=== PATIENT | male | born 1985 | race Caucasian/White ===

== ENCOUNTER 2020-06-22 14:25 | Emergency (ER) | payer BC ==
[2020-06-22] MEDS ORDERED: Ketorolac 15 MG/ML SDV IVPUSH ONE (15:04)
[2020-06-22] MEDS ORDERED: Sodium Chloride 0.9% 1,000 ML IV SCH (15:15)
--- NOTE | 2020-06-22 15:25 | EDM.PDOC ---
ED HPI GENERAL MEDICAL PROBLEM - General Chief Complaint: Cardiovascular Problem Time Seen by Provider: 06/22/20 14:30 Source of Information: Reports: Patient History Limitations: Reports: No Limitations - History of Present Illness INITIAL COMMENTS - FREE TEXT/NARRATIVE: Pt. presents to ER with complaints of substernal chest discomfort, shortness of breath, and pain with deep breathing. He states that he was working on his computer at onset of symptoms. He states that he has not been diaphoretic. No nausea, vomiting, or diarrhea. He states that he feels a bit more congested, in the sinuses more than the chest. He states that he does not have a productive cough. Pt. states that he has never had any problem like this in the past. He has no history of hypertension. According to his [place] chart, he has a history of low HDL. Remainder of lipid panel were normal. Pt. is a non-smoker. He exercises daily. He states that he does feel somewhat anxious, but he states that this is improving since getting to the hospital. Onset: Today Onset Date: 06/22/20 - Related Data Allergies Allergy/AdvReac Type Severity Reaction Status Date / Time Penicillins Allergy Cannot Verified 06/22/20 14:52 Remember Home Meds: Home Meds . [No Known Home Meds] 06/22/20 [History] Past Medical History Psychiatric History: Reports: Anxiety Social & Family History - Tobacco Use Tobacco Use Status *Q: Never Tobacco User - Recreational Drug Use Recreational Drug Use: No ED ROS GENERAL - Review of Systems Review Of Systems: See Below Constitutional: Reports: No Symptoms HEENT: Reports: No Symptoms Respiratory: Reports: Shortness of Breath, Pleuritic Chest Pain Cardiovascular: Reports: Chest Pain Endocrine: Reports: No Symptoms GI/Abdominal: Reports: No Symptoms : Reports: No Symptoms Musculoskeletal: Reports: No Symptoms Skin: Reports: No Symptoms Neurological: Reports: No Symptoms Psychiatric: Reports: No Symptoms Hematologic/Lymphatic: Reports: No Symptoms Immunologic: Reports: No Symptoms ED EXAM, GENERAL - Physical Exam Exam: See Below Exam Limited By: No Limitations General Appearance: Alert, WD/WN, No Apparent Distress Head: Atraumatic, Normocephalic Neck: Normal Inspection, Supple, Non-Tender, Full Range of Motion Respiratory/Chest: No Respiratory Distress, Lungs Clear, No Accessory Muscle Use, Chest Non-Tender, Pleural Rub Cardiovascular: Normal Peripheral Pulses, Regular Rate, Rhythm, No Edema, No JVD, No Murmur Peripheral Pulses: 4+: Radial (L) GI/Abdominal: Normal Bowel Sounds, Soft, Non-Tender, No Organomegaly, No Distention, No Abnormal Bruit, No Mass (Male) Exam: Deferred Rectal (Males) Exam: Deferred Back Exam: Normal Inspection, Full Range of Motion Extremities: Normal Inspection, Normal Range of Motion, Non-Tender, No Pedal Edema, Normal Capillary Refill Neurological: Alert, Oriented, CN II-XII Intact, Normal Cognition, Normal Gait, Normal Reflexes, No Motor/Sensory Deficits Psychiatric: Normal Affect, Normal Mood Skin Exam: Warm, Dry, Intact, Normal Color, No Rash #1 Interpretation Rhythm: NSR [place]: Normal P-Wave: Present QRS: Normal ST-T: Normal QT: Normal EKG Interpretation Comments: Prehospital EKG was preformed and not repeated. No acute ST and T wave abnormality. Course - Vital Signs Last Recorded V/S: Last Vital Signs Temp 36.8 C 06/22/20 14:25 Pulse 85 06/22/20 15:16 Resp 11 L 06/22/20 15:16 BP 133/90 06/22/20 15:16 Pulse Ox 98 06/22/20 15:16 - Orders/Labs/Meds Orders: Active Orders 24 hr Category Date Time Status Sodium Chloride 0.9% [Normal Saline] 1,000 ml Med 06/22/20 15:15 Ordered IV ASDIRECTED Medication Orders Sodium Chloride (Normal Saline) 1,000 mls @ 1,000 mls/hr IV ASDIRECTED MERRY Last Admin: 06/22/20 15:13 Dose: 1,000 mls/hr Documented by: RIDGE Labs: Laboratory Tests 06/22/20 06/22/20 06/22/20 Range/Units 15:15 15:15 15:15 WBC 8.6 (4.0-10.0) x10^3/uL RBC 5.02 (4.5-6.0) x10^6/uL Hgb 13.9 L (14.0-18.0) g/dL Hct 41.3 (40.0-52.0) % MCV 82.3 (78.0-93.0) fL MCH 27.7 (26.0-32.0) pg MCHC 33.7 (32.0-36.0) g/dL RDW Coeff of Gurwinder 12.7 (10.0-15.0) % Plt Count 257 (130-400) x10^3/uL Neut % (Auto) 76.8 (50.0-80.0) % Lymph % (Auto) 16.1 L (25.0-50.0) % Sac % (Auto) 6.4 (2.0-11.0) % Eos % (Auto) 0.5 (0.0-4.0) % Baso % (Auto) 0.2 (0.2-1.2) % PT 10.4 (9.9-12.5) SEC INR 0.9 L (2.0-3.5) APTT (25.6-32.8) SEC D-Dimer, Quantitative < 0.19 (<=0.58) mg/LFEU Sodium 142 (136-145) mmol/L Potassium 4.1 (3.5-5.1) mmol/L Chloride 104 (98-107) mmol/L Carbon Dioxide 29 (21-32) mmol/L Anion Gap 13.1 (5-15) mmol/L BUN 24 H (7-18) mg/dL Creatinine 1.2 (0.70-1.30) mg/dL Est Cr Clr Drug Dosing TNP Estimated GFR (MDRD) > 60 Glucose 100 (74-106) mg/dL Calcium 9.0 (8.5-10.1) mg/dL Corrected Calcium 8.92 (8.5-10.1) mg/dL Total Bilirubin 0.8 (0.2-1.0) mg/dL AST 20 (15-37) U/L ALT 36 (16-63) U/L Alkaline Phosphatase 111 (46-116) U/L Troponin I High Sens 6 (<=76) ng/L C-Reactive Protein 0.7 (<=0.9) mg/dL Total Protein 7.7 (6.4-8.2) g/dL Albumin 4.1 (3.4-5.0) g/dL Globulin 3.6 Albumin/Globulin Ratio 1.14 TSH, Ultra Sensitive 1.069 (0.358-3.74) uIU/mL 03/23/21 Range/Units 15:15 WBC (4.0-10.0) x10^3/uL RBC (4.5-6.0) x10^6/uL Hgb (14.0-18.0) g/dL Hct (40.0-52.0) % MCV (78.0-93.0) fL MCH (26.0-32.0) pg MCHC (32.0-36.0) g/dL RDW Coeff of Gurwinder (10.0-15.0) % Plt Count (130-400) x10^3/uL Neut % (Auto) (50.0-80.0) % Lymph % (Auto) (25.0-50.0) % Sac % (Auto) (2.0-11.0) % Eos % (Auto) (0.0-4.0) % Baso % (Auto) (0.2-1.2) % PT (9.9-12.5) SEC INR (2.0-3.5) APTT 25.2 L (25.6-32.8) SEC D-Dimer, Quantitative (<=0.58) mg/LFEU Sodium (136-145) mmol/L Potassium (3.5-5.1) mmol/L Chloride (98-107) mmol/L Carbon Dioxide (21-32) mmol/L Anion Gap (5-15) mmol/L BUN (7-18) mg/dL Creatinine (0.70-1.30) mg/dL Est Cr Clr Drug Dosing Estimated GFR (MDRD) Glucose (74-106) mg/dL Calcium (8.5-10.1) mg/dL Corrected Calcium (8.5-10.1) mg/dL Total Bilirubin (0.2-1.0) mg/dL AST (15-37) U/L ALT (16-63) U/L Alkaline Phosphatase (46-116) U/L Troponin I High Sens (<=76) ng/L C-Reactive Protein (<=0.9) mg/dL Total Protein (6.4-8.2) g/dL Albumin (3.4-5.0) g/dL Globulin Albumin/Globulin Ratio TSH, Ultra Sensitive (0.358-3.74) uIU/mL Meds: Medications Generic Name Dose Route Start Last Admin Trade Name Chris PRN Reason Stop Dose Admin Sodium Chloride 1,000 mls @ 1,000 mls/hr 06/22/20 15:15 06/22/20 15:13 Normal Saline IV 1,000 mls/hr ASDIRECTED MERRY Administration Discontinued Medications Generic Name Dose Route Start Last Admin Trade Name Chris PRN Reason Stop Dose Admin Ketorolac Tromethamine 15 mg 06/22/20 15:04 06/22/20 15:13 Ketorolac 15 Mg/Ml Sdv IVPUSH 06/22/20 15:05 15 mg ONETIME ONE Administration - Radiology Interpretation Free Text/Narrative:: Chest x-ray negative for acute pathology - Re-Assessments/Exams Free Text/Narrative Re-Assessment/Exam: Pt. was given a liter of NS and 15mg toradol IV. Pt. reported significant improvement in his discomfort. He was pain free at time of discharge. Departure - Departure Time of Disposition: 16:02 Disposition: Home, Self-Care 01 Clinical Impression: Chest pain, atypical Instructions: Pleurisy, [id number], Prednisone tablets Referrals: PCP,None [Primary Care Provider] - Forms: ED Department Discharge Additional Instructions: Home to rest. Ibuprofen 200mg 3 tabs every 6 hours as needed for pain Prednisone 20mg 2 tabs every 6 hours for inflammation. Recheck in clinic in 10-14 days Return to ER if pain is severe/not amenable to ibuprofen, if you have increased shortness of breath, or feel faint. Sepsis Event Note (ED) - Evaluation Sepsis Screening Result: No Definite Risk - Focused Exam Vital Signs: Vital Signs Temp Pulse Resp BP Pulse Ox 06/22/20 15:16 85 11 L 133/90 98 06/22/20 14:25 36.8 C 89 20 175/96 H 97 - My Orders Last 24 Hours: My Active Orders 06/22/20 15:15 Sodium Chloride 0.9% [Normal Saline] 1,000 ml IV ASDIRECTED - Assessment/Plan Last 24 Hours: My Active Orders 06/22/20 15:15 Sodium Chloride 0.9% [Normal Saline] 1,000 ml IV ASDIRECTED Plan: Home to rest. Ibuprofen 200mg 3 tabs every 6 hours as needed for pain Prednisone 20mg 2 tabs every 6 hours for inflammation. Recheck in clinic in 10-14 days Return to ER if pain is severe/not amenable to ibuprofen, if you have increased shortness of breath, or feel faint.
[2020-06-22 15:53] LABS: ANION GAP 13.1 mmol/L (5-15); CHLORIDE,CL 104 mmol/L (98-107); SODIUM,NA 142 mmol/L (136-145)
--- NOTE | 2020-06-22 15:54 | CR ---
[id number] RAD/RAD Chest Portable EXAM: PORTABLE CHEST INDICATION: CHEST PAIN. COMPARISON: None. DISCUSSION: The heart and lungs are normal in appearance. IMPRESSION: 1. Negative exam. Anurag Muñoz MD 06/22/20 [id number] Thank you for allowing us to participate in the care of your patient.
== END 2020-06-22 16:11 | disposition home or self-care (01) ==
LOC: VM.ED 14:25
DX: R07.89 Other chest pain (principal); R06.02 Shortness of breath; R07.81 Pleurodynia; Z88.0 Allergy status to penicillin
CPT/HCPCS: 36415; 71045; 80053; 84443; 84484; 85025; 85379; 85610; 85730; 86140; 93010; 96374; 99284; 99285-25; J1885; J7030